=== PATIENT | female | born 1985 ===

== ENCOUNTER 2018-03-13 05:47 | Emergency (ER) | payer OTHER ==
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
[2018-03-13 06:37] LABS: CHLORIDE,CL 106 mmol/L (98-107); SODIUM,NA 139 mmol/L (136-145)
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
== END 2018-03-13 07:59 | disposition home or self-care (01) ==
LOC: MW.ED 05:47
DX: G44.319 Acute post-traumatic headache, not intractable (principal); S00.212A Abrasion of left eyelid and periocular area, initial encounter; I10 Essential (primary) hypertension; V89.2XXA Person injured in unspecified motor-vehicle accident, traffic, initial encounter; Y92.481 Parking lot as the place of occurrence of the external cause
CPT/HCPCS: 36415; 70450; 71045; 72125; 80053; 80305; 81001; 84703; 85025; 99285; G0480